=== PATIENT | female | born 1995 | race Caucasian/White ===

== ENCOUNTER 2024-08-06 18:40 | Inpatient (IN) | payer OTHER ==
[2024-08-06] MEDS: LACTATED RINGERS SOLUTION 1,000 ML IV ONE (19:30)
[2024-08-06] MEDS ORDERED: ACETAMINOPHEN INJECTION 100 ML ONE (19:32)
[2024-08-06] MEDS: ACETAMINOPHEN 1000 MG/100 ML BAG IVPB ONE (19:35)
[2024-08-06] MEDS: LACTATED RINGERS SOLUTION 1,000 ML IV SCH (20:30)
[2024-08-06 21:37] VITALS: BMI 28.5
[2024-08-06 21:45] LABS: BASO % 0.3 % (0-2.0); HEMATOCRIT 35.1 % (32.4-45.2); HEMOGLOBIN 11.7 GM/dL (10.7-15.3); LYMPH % 6.1 % (8-40); MCH 30.2 pg (25.7-33.7); MCHC 33.4 g/dl (32.0-36.0); MEAN CELL VOLUME 90.5 fl (80-96); MEAN PLT VOLUME 9.1 fl (7.5-11.1); MONO % 4.8 % (3.8-10.2); NEUT % 88.8 % (42.8-82.8); PLATELET COUNT 293 10^3/uL (134-434); RBC 3.88 M/mm3 (3.60-5.2); RDW 13.7 % (11.6-15.6); WHITE BLOOD COUNT 10.2 K/mm3 (4.0-10.0)
[2024-08-06 21:50] LABS: INR 0.95 (0.83-1.09); PROTHROMBIN TIME (PATIENT) 10.8 SEC (9.7-13.0)
[2024-08-06 21:53] LABS: ACTIVATED PTT 29.4 SECONDS (25.2-36.5)
[2024-08-06] MEDS ORDERED: FENTANYL/BUPIVACAINE/NS/PF - PCEA - 50 ML DISP.SYRIN EP ONE (22:02)
[2024-08-06 22:05] LABS: POTASSIUM 3.8 mmol/L (3.5-5.1)
[2024-08-06 22:08] LABS: CALCIUM 8.7 mg/dL (8.5-10.1)
[2024-08-06 22:09] LABS: BLOOD UREA NITROGEN 10.7 mg/dL (7-18)
[2024-08-06] MEDS ORDERED: NALOXONE HCL 0.4 MG/ML VIAL IVPUSH PRN (22:09)
[2024-08-06 22:12] LABS: CREATININE 0.5 mg/dL (0.55-1.3)
[2024-08-06] MEDS ORDERED: FENTANYL CITRATE/PF 50 MCG/ML VIAL ONE (22:12)
[2024-08-06] MEDS ORDERED: BUPIVACAINE HCL/PF 0.25% (2.5MG/ML) 10 ML VIAL ONE (22:12)
[2024-08-06] MEDS: FENTANYL/BUPIVACAINE/NS/PF - PCEA - 50 ML DISP.SYRIN EP SCH (22:30)
[2024-08-07] MEDS ORDERED: FENTANYL/BUPIVACAINE/NS/PF - PCEA - 50 ML DISP.SYRIN EP ONE (03:17)
[2024-08-07 03:21] VITALS: RESP 18
[2024-08-07] MEDS ORDERED: OXYTOCIN 20 UNITS in 0.9% NS 20 UNIT/1,000 ML INFUS.BAG IV ONE ×2 (05:46→10:40)
[2024-08-07] MEDS: OXYTOCIN 20 UNITS in 0.9% NS 20 UNIT/1,000 ML INFUS.BAG IV SCH (06:18)
[2024-08-07] MEDS ORDERED: WITCH HAZEL 50% (TUCKS) 40 PAD/JAR PAD TP PRN (06:51)
[2024-08-07] MEDS ORDERED: BENZOCAINE 28 GM HEMORRHOIDAL OINTMENT TP PRN (06:51)
[2024-08-07] MEDS ORDERED: BISACODYL 10 MG SUPP.RECT RC PRN (06:51)
[2024-08-07] MEDS ORDERED: BENZOCAINE 20% 57 GM BOTTLE TP PRN (06:51)
[2024-08-07 07:22] LABS: CORD BASE EXCESS -5.1 mmol/L (0-2); CORD HCO3 18.7 mmHg (20-29); CORD PCO2 32.4 mmHg (30-78); CORD pH 7.379 (7.14-7.44)
[2024-08-07] MEDS: METHYLERGONOVINE MALEATE 0.2 MG/1 ML AMP IM PRN (07:32)
[2024-08-07] MEDS ORDERED: IBUPROFEN 600 MG TABLET (FP) PO ONE (08:45)
[2024-08-07] MEDS: IBUPROFEN 600 MG TABLET (FP) PO PRN (08:50)
[2024-08-07] MEDS ORDERED: oxyCODONE HCL 5 MG TABLET ONE (10:26)
[2024-08-07] MEDS: oxyCODONE HCL 5 MG TABLET PO PRN (10:27)
[2024-08-07] MEDS: oxyCODONE HCL 5 MG TABLET PO ONE (11:18)
[2024-08-07] MEDS: PRENATAL VITAMINS W/ FOLIC ACID TABLET (FP) PO SCH (11:22)
[2024-08-07] MEDS: ACETAMINOPHEN 325 MG TABLET (FP) PO PRN (11:22)
[2024-08-07] MEDS: METOCLOPRAMIDE HCL INJECTION 10 MG/2 ML VIAL IVPUSH PRN (18:40)
[2024-08-07] MEDS: OSELTAMIVIR PHOSPHATE 75 MG CAPSULE PO SCH (21:30)
[2024-08-08 07:10] LABS: BASO % 0.4 % (0-2.0); EOS % 0.3 % (0-4.5); HEMATOCRIT 27.7 % (32.4-45.2); HEMOGLOBIN 9.4 GM/dL (10.7-15.3); LYMPH % 19.4 % (8-40); MCH 30.7 pg (25.7-33.7); MEAN CELL VOLUME 90.2 fl (80-96); MEAN PLT VOLUME 9.1 fl (7.5-11.1); MONO % 6.6 % (3.8-10.2); NEUT % 73.3 % (42.8-82.8); PLATELET COUNT 259 10^3/uL (134-434); RBC 3.07 M/mm3 (3.60-5.2); RDW 13.8 % (11.6-15.6); WHITE BLOOD COUNT 9.7 K/mm3 (4.0-10.0)
[2024-08-08] MEDS: ACETAMINOPHEN/CAFFEINE/BUTALBITAL 1 TAB PO PRN (15:22)
[2024-08-08] MEDS: NADOLOL 40 MG TABLET (FP) PO ONE (16:50)
[2024-08-08] MEDS ORDERED: SENNOSIDES/DOCUSATE COMBO (SENNA PLUS) TABLET (UD) PO PRN (22:00)
[2024-08-09 09:34] VITALS: BP 105/55; PULSE 60; TEMP 98
[2024-08-09] MEDS: LACTATED RINGERS SOLUTION 1,000 ML IV SCH (10:00)
[2024-08-09] MEDS ORDERED: ACETAMINOPHEN/CAFFEINE/BUTALBITAL 1 TAB PO PRN ×2 (10:30→14:00)
[2024-08-09] MEDS: ACETAMINOPHEN 325 MG TABLET (FP) PO SCH (10:52)
[2024-08-09 11:05] LABS: INR 0.87 (0.83-1.09)
[2024-08-09] MEDS: NADOLOL 40 MG TABLET (FP) PO SCH (12:40)
[2024-08-09] MEDS ORDERED: AMITRIPTYLINE HCL 10 MG TABLET PO SCH (22:00)
== END 2024-08-09 15:16 | disposition home or self-care (01) | DRG 560 ==
LOC: JDEL 18:40 → JLDR 21:10 → J3W 08-07 10:50
PROVIDERS: ADMIT Obstetrics & Gynecology; ATTEND Obstetrics & Gynecology
PROC: 10E0XZZ Delivery of Products of Conception, External Approach (ICD-10-PCS; principal; 2024-08-07)
PROC: 0KQM0ZZ Repair Perineum Muscle, Open Approach (ICD-10-PCS; 2024-08-07)
PROC: 3E0R3GC Introduction of Other Therapeutic Substance into Spinal Canal, Percutaneous Approach (ICD-10-PCS; 2024-08-09)
DX: O70.1 Second degree perineal laceration during delivery (principal); O90.89 Other complications of the puerperium, not elsewhere classified; G43.909 Migraine, unspecified, not intractable, without status migrainosus; J10.1 Influenza due to other identified influenza virus with other respiratory manifestations; D32.9 Benign neoplasm of meninges, unspecified; Z3A.39 39 weeks gestation of pregnancy; Z37.0 Single live birth
CPT/HCPCS: 0241U-QW; 36415; 36600; 59025; 59409; 70450-TC; 70545-TC; 70552-TC; 80048; 82803; 85025; 85610; 85730; 86780; 86850; 86900; 86901; J0131